=== PATIENT | female | born 1955 | race Caucasian/White ===

== ENCOUNTER → 2017-02-18 | Outpatient (CLI) | payer OTHER ==
--- NOTE | 2017-02-19 15:29 | MAM ---
EXAM DESCRIPTION: 3D Screening BILATERAL : Digital Mammography. CLINICAL HISTORY: 61 years Female SCREENING . No complaints. Mother and sister with breast cancer. Postmenopausal. No HRT. COMPARISON: 2-D digital screening bilateral study 02/14/2016. Report from prior examination also reviewed. TECHNIQUE: Bilateral CC and MLO projection full-field images, 3-D tomosynthesis digital mammographic technique. Also bilateral synthesized CC/ MLO full-field images. CAD not utilized. FINDINGS: The breast parenchymal density pattern is: Extremely dense breast tissue, which lowers the sensitivity of mammography. No skin thickening or nipple retraction . Suggestion of architectural distortion seen on the MLO view posteriorly and superiorly at the interface between the dense fibroglandular tissues and the fatty tissue layer. Not well seen on the prior study. This may be partially visualized laterally on the CC images, 1200 - 100 clock position. No focal, stellate mass or density, focal asymmetry , and no suspicious microcalcifications right breast. IMPRESSION: BI-RADS CATEGORY: 0 - INCOMPLETE- Need additional imaging evaluation. FOLLOW-UP: Recall for additional imaging: Full field left breast 3-D LM tomosynthesis images and 3-D tomosynthesis exaggerated CC images left breast. Followed by targeted left breast ultrasound. Written communication concerning the IMPRESSION and Follow-up, will be mailed to the patient and referring health care provider. Electronically signed by: Jl Mcgregor MD 02/19/2017 3:28 PM REPORT CLERK
== END | disposition home or self-care (01) ==
LOC: MAMMO 10:42
PROVIDERS: ATTEND Family Medicine
DX: Z12.31 Encounter for screening mammogram for malignant neoplasm of breast (principal)
CPT/HCPCS: 77063; G0202

== ENCOUNTER → 2017-03-05 | Outpatient (CLI) | payer OTHER ==
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
== END | disposition home or self-care (01) ==
LOC: MAMMO 09:56
PROVIDERS: ATTEND Family Medicine
DX: Z12.31 Encounter for screening mammogram for malignant neoplasm of breast (principal)
CPT/HCPCS: 76641; G0206; G0279

== ENCOUNTER → 2017-03-10 | Outpatient (CLI) | payer OTHER | END | disposition home or self-care (01) | LOC: GMAH 10:59 | PROVIDERS: ATTEND Family Medicine | DX: Z00.00 Encounter for general adult medical examination without abnormal findings (principal) ==

== ENCOUNTER → 2017-03-19 | Outpatient (CLI) | payer OTHER ==
--- NOTE | 2017-03-19 16:53 | OP ---
DATE OF PROCEDURE: 03/19/17 PREOPERATIVE DIAGNOSIS: 1. Abnormal left mammogram. POSTOPERATIVE DIAGNOSIS: 1. Abnormal left mammogram. SURGICAL PROCEDURE: 1. Sonographic guided needle core biopsy left breast lesion. SURGEON: Ky Capone M.D. WAREHOUSE REPRESENTATIVE: None. ANESTHESIA: Local infiltration of 1% Lidocaine. INDICATION FOR SURGERY: The patient is a 61 year-old female with a strong family history of breast cancer who has a left breast mass and abnormal mammogram. She was brought to the Ultrasound Department today for sonographic guided needle core biopsy under local anesthesia. FINDINGS AT TIME OF PROCEDURE: Four good cores were obtained with the needle identified by ultrasound within the mass. DESCRIPTION OF PROCEDURE: The patient was brought to the Ultrasound Suite and placed in the supine position. The left breast was examined using the ultrasound device. Then the breast lateral to the ultrasound device was prepped with Betadine and draped. Local infiltration of anesthesia was obtained with 1% Lidocaine. Then the tissue between the skin and the lesion was infiltrated with local anesthesia. A stab wound was made with a #25 blade and then multiple passes were made with the needle device into the mass and specimens were taken. This was directed by the ultrasound. Hemostasis was obtained with pressure. Then a single #4-0 nylon simple suture was placed in the wound. Sterile pressure dressing was applied. The patient tolerate the procedure well. #[id number] [facility]
--- NOTE | 2017-03-20 10:31 | US ---
EXAM DESCRIPTION: Biopsy/Needle Guidance CLINICAL HISTORY: 61 years Female LEFT BREAST MASS COMPARISON: Diagnostic ultrasound of the left breast on 03/05/2017. 3-D tomosynthesis left breast diagnostic mammogram on the same visit. TECHNIQUE: The procedure was performed by Dr. Capone. Repeat ultrasound localized the hypoechoic mass left upper breast at the 1200 clock position of the left breast, 7 cm from the nipple. Sterile preparation. Sterile ultrasound guidance. FINDINGS: Again noted is a hypoechoic mass in the breast tissue abutting the chest wall with partially indistinct and microlobulated borders. Minimally vascular and parallel orientation with predominant posterior shadowing. Dimensions are 2.5 x 2.3 x 1.6 cm. Multiple scans show the echogenic sampling needle within the lesion. IMPRESSION: Successful, ultrasound-guided, fine-needle core biopsy of left breast mass. Adequate core samples were obtained. Pathology examination at remote facility, results pending. Electronically signed by: Jl Mcgregor MD 03/20/2017 10:30 AM ARMHOLE BASTER HAND
== END | disposition home or self-care (01) ==
LOC: US 14:55
PROVIDERS: ATTEND Surgery
PROC: 0HBU3ZX Excision of Left Breast, Percutaneous Approach, Diagnostic (ICD-10-PCS; principal; 2017-03-19)
DX: R92.8 Other abnormal and inconclusive findings on diagnostic imaging of breast (principal)

== ENCOUNTER → 2017-03-26 | Outpatient (CLI) | payer OTHER | END | disposition home or self-care (01) | LOC: LAB.O 11:12 | PROVIDERS: ATTEND Surgery | DX: C50.812 Malignant neoplasm of overlapping sites of left female breast (principal) ==

== ENCOUNTER → 2017-03-27 | Outpatient (CLI) | payer OTHER ==
--- NOTE | 2017-03-27 17:05 | NM ---
EXAM DESCRIPTION: Bone Scan, Whole Body CLINICAL HISTORY: LEFT BREAST CA COMPARISON: None available TECHNIQUE: Following intravenous administration of 28 mCi technetium 99 M MDP, whole body scintigraphic imaging was performed. FINDINGS: Skull: Unremarkable. Spine: Mild levoscoliotic curvature of the lumbar spine. No osteoblastic metastatic lesions. Thorax: Symmetric physiologic radiotracer uptake in the bilateral ribs and sternum. Abdomen pelvis: Urinary activity demonstrated within the bilateral kidneys and urinary bladder. The right kidney is lower in location relative to the left kidney. Extremities: Mild asymmetric diffuse increased uptake in the left fibula, nonspecific and most likely secondary to reactive changes. Soft tissue: Normal distribution of radiopharmaceutical. IMPRESSION: No scintigraphic evidence for osteoblastic metastatic disease. Electronically signed by: Allen Kim MD 03/27/2017 5:04 PM TROLLEY CAR MECHANIC
== END | disposition home or self-care (01) ==
LOC: NM 09:05
PROVIDERS: ATTEND Surgery
DX: C50.812 Malignant neoplasm of overlapping sites of left female breast (principal)

== ENCOUNTER → 2017-04-04 | Outpatient (CLI) | payer OTHER ==
--- NOTE | 2017-04-04 18:49 | CT ---
EXAM DESCRIPTION: Chest w/Contrast CT. CLINICAL HISTORY: BREAST CANCER C50.812 COMPARISON: CT scan abdomen and pelvis without and with IV contrast on this visit. TECHNIQUE: Spiral-axial scans at 5.0 mm intervals through the lungs and thorax with IV contrast. 0.6 mm lung algorithm axial reconstructions. Coronal and sagittal 2.0 Mm reconstructions. No adverse reactions. Total Exam DLP: 370.16 mGy-cm. This exam was performed according to our departmental dose-optimization program which includes automated exposure control, adjustment of the mA and/or kV according to patient size and/or use of iterative reconstruction technique; to reduce radiation dose to as low as reasonably achievable (ALARA). FINDINGS: Minimally dilated airspaces in the central parenchyma. More prevalent in the upper lobes and the lower lobes. Minimal hyperinflation of the lungs bilaterally. No abnormal nodules masses or infiltrates bilaterally. No pleural effusion or pneumothorax. No soft tissue mass enlarged lymph nodes or abnormal enhancement in the mediastinum or hilum. Uniform enhancement of the included thyroid gland. No soft tissue masses in the base of the neck and no adenopathy in the axillary regions. Enhancing 1.5 x 1.3 cm region of the superior left breast corresponds to the mass seen on mammography ultrasound and biopsied with ultrasound guidance. Minimal narrowing of some thoracic disc spaces with narrowing of the included cervical spine disc spaces with anterior endplate ridging. No lytic lesions or sclerotic lesions in the included bony structures. Levoscoliosis upper thoracic spine and broad dextroscoliosis mid and lower spine. IMPRESSION: 1. Mild emphysematous changes in the lung parenchyma more prevalent in the upper lobes. No abnormal nodules masses or infiltrates. 2. No soft tissue masses in the mediastinum or hilum or axilla. Enhancing tumor in the superior left breast. Electronically signed by: Jl Mcgregor MD 04/04/2017 6:47 PM FACSIMILE OPERATOR Workstation: [id number]
--- NOTE | 2017-04-04 19:22 | CT ---
EXAM DESCRIPTION: Abdomen/Pelvis w/wo Contrast: CT. CLINICAL HISTORY: BREAST CANCER C50.812 COMPARISON: CT scan of the chest with IV contrast on the same visit. TECHNIQUE: Spiral-axial scans at 5.0 mm intervals through the abdomen and pelvis before and after standard dose nonionic IV contrast. No oral contrast. Coronal and sagittal 2.0 mm reconstructions. No adverse reactions. Total Exam DLP 660.7 mGy - cm. This exam was performed according to our departmental CT dose-optimization program which includes automated exposure control, adjustment of the mA and/or kV according to patient size and/or use of iterative reconstruction technique; to reduce radiation dose to as low as reasonably achievable (ALARA). FINDINGS: Liver, Stomach, Spleen, Adrenal Glands: Craniocaudal dimension of the liver 16.6 cm. Other solid organs unremarkable. Minimal fluid in the stomach. Pancreas, Gallbladder, Ducts: Gallbladder visualized. Pancreas with minimal surrounding fat. Normal caliber of the duct. Kidneys and Ureters: With minimal surrounding fat. Mesentery: Unremarkable. No free air or fluid. Aorta: Intimal wall thickening and moderate atherosclerotic calcification mostly distally extending into the common iliac arteries. Small Bowel: Diffuse gas and minimal fluid but no air-fluid levels. Terminal Ileum/Cecum: Normal caliber of the TI with gas. Minimal distention of the cecum with fecal matter. Appendix is not seen. Cecum impressing on the urinary bladder. Colon: Fecal matter from the descending colon to the sigmoid colon. Minimal redundancy of the sigmoid colon. Pelvic Organs: Urinary bladder is distended but no radiodense stones. Vaginal cuff is unremarkable. No fluid in the cul-de-sac. Ovaries are not well seen. Spine and Bony Pelvis: Minimal spondylosis of the upper lumbar spine but no bone destruction. No bone destruction in the pelvis. Minimal gas density in the left SI joint. Abdominal Wall/Back Soft Tissues: Small inguinal lymph nodes. IMPRESSION: 1. Liver minimally enlarged with normal enhancement. No focal lesions in the solid organs. No peritoneal or retroperitoneal mass. No free air or ascites. No fluid in the cul-de-sac. 2. Minimal gaseous distention of the small bowel and also the cecum. Also distention of the colon by gas and fecal material. No obstruction. Electronically signed by: Jl Mcgregor MD 04/04/2017 7:21 PM LANG INTERPRETER Workstation: [id number]
== END | disposition home or self-care (01) ==
LOC: LAB.O 08:39
PROVIDERS: ATTEND Surgery
DX: C50.812 Malignant neoplasm of overlapping sites of left female breast (principal)

== ENCOUNTER 2017-04-14 05:39 | Inpatient (IN) | payer OTHER ==
[2017-04-14] MEDS ORDERED: SODIUM CHL 0.9% 100ML MINI-BAG 100 ML IVPB ONE (06:11)
[2017-04-14] MEDS ORDERED: LACTATED RINGERS 1,000 ML ONE (06:11)
[2017-04-14] MEDS ORDERED: ceFAZolin SODIUM 1 GM VIAL ONE ×3 (06:11→19:48)
[2017-04-14] MEDS ORDERED: fentaNYL CITRATE INJ 50 MCG/ML AMP ONE (08:44)
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
[2017-04-14] MEDS ORDERED: SODIUM CHLORIDE 0.9% 50 ML VIAL INJ ONE (10:00)
[2017-04-14] MEDS ORDERED: PROPOFOL 200 MG/20 ML VIAL IV ONE (10:00)
[2017-04-14] MEDS ORDERED: ePHEDrine SULF 50 MG/ML IV ONE (10:00)
[2017-04-14] MEDS ORDERED: LACTATED RINGERS 1,000 ML IVS PRN (11:26)
[2017-04-14] MEDS ORDERED: ONDANSETRON INJ 4 MG/2 ML VIAL IV PRN (11:31)
[2017-04-14] MEDS ORDERED: ACETAMINOPHEN W/COD #3 TAB 1 EA TAB PO PRN (11:33)
--- NOTE | 2017-04-14 11:52 | OP ---
DATE OF PROCEDURE: 04/14/17 PREOPERATIVE DIAGNOSIS: 1. Biopsy-proven carcinoma of the left breast. POSTOPERATIVE DIAGNOSIS: 1. Biopsy-proven carcinoma of the left breast. PROCEDURE: 1. Left modified radical mastectomy. SURGEON: Ky Capone MD. SEWER: None. ANESTHESIA: General laryngeal mask anesthesia. INDICATION: The patient is a 62-year-old female with a strong family history of breast cancer. She developed a mass in her left breast. She underwent needle core biopsy and was found to have an invasive carcinoma. She has palpable lymphadenopathy in the left axilla. She was brought to the Surgical Suite today for mastectomy with axillary node dissection after the risks, benefits and alternatives to the procedure were discussed and accepted. FINDINGS: The mass was not stuck to the muscle or to the skin and clinically, margins were clear. The adenopathy was identified in the axilla and removed with the specimen. No other pathology was identified. PROCEDURE: After adequate general laryngeal mask anesthesia was obtained, the patient was prepped and draped in the usual sterile manner. Surgical time-out was taken. An elliptical incision was fashioned in an oblique direction including the biopsy site, the mass and the nipple-areola complex within the specimen. At this point, the superior flap was then taken, first with a sharp knife, then dissection was carried down through the skin with electrocautery. The Edith thyroid grasping forceps were then placed on the skin edges and the superior flap was taken the sternum medially, the clavipectoral fascia superiorly and into the axilla. When this was done, a moist sponge was placed under the flap and the inferior flap was taken in the same manner down to the rectus fascia inferiorly. When this was done, the breast was taken down from superiorly and medially using a sharp knife. When this was done, dissection was carried into the axilla and in the usual manner, the axillary dissection was performed. The specimen was sent for pathological evaluation. The wound was then irrigated copiously with saline. Two drains were placed through the inferior flap. They were 15 mm round SANCHEZ drains. One was placed in the axilla, one to the chest wall. They were sutured in place with 3-0 Nylon ligatures. At this point, the subcutaneous tissues were approximated with running 3-0 Vicryl suture, one tied from each end. The wound was then irrigated through the incision and aspirated out through the drains. The skin edges were approximated with a skin stapler. A sterile pressure dressing was applied. The patient was awakened and taken to the Recovery Room in good and stable condition. Estimated blood loss was 75 to 100 mL. All sponge, needle and instrument counts were correct. #[id number] [facility]
[2017-04-14] MEDS ORDERED: LEVALBUTEROL NEBS 1.25 MG/3 ML VIAL NEB ONE (12:02)
[2017-04-14] MEDS: LEVALBUTEROL NEBS 0.63 MG/3 ML VIAL NEB SCH ×3 (12:06→23:32)
[2017-04-14] MEDS: MORPHINE SULFATE INJ 10 MG/ML VIAL IV PRN ×2 (13:00→22:06)
[2017-04-14] MEDS ORDERED: ceFAZolin SODIUM 2 GRAMS PREMI 50 ML IVPB ONE (13:41)
[2017-04-14] MEDS ORDERED: SODIUM CHL 0.9% 50ML MIN-BAG+ 50 ML IVPB ONE ×2 (13:45→19:47)
[2017-04-14] MEDS: ceFAZolin SODIUM 1 GM in SODIUM CHL 0.9% 50ML MIN-BAG+ 50 ML IVPB SCH ×2 (13:47→21:34)
[2017-04-14] MEDS ORDERED: SODIUM CHLORIDE 0.9% (FLUSH) 10 ML SYG IV PRN (14:35)
[2017-04-14] MEDS: ENOXAPARIN SODIUM 40 MG/0.4 ML SYG SUBCU SCH (21:34)
[2017-04-15] MEDS ORDERED: SODIUM CHL 0.9% 50ML MIN-BAG+ 50 ML IVPB ONE (05:17)
[2017-04-15] MEDS ORDERED: ceFAZolin SODIUM 1 GM VIAL ONE (05:17)
[2017-04-15] MEDS: ceFAZolin SODIUM 1 GM in SODIUM CHL 0.9% 50ML MIN-BAG+ 50 ML IVPB SCH (05:23)
[2017-04-15] MEDS: LEVALBUTEROL NEBS 0.63 MG/3 ML VIAL NEB SCH ×3 (08:45→23:41)
[2017-04-15] MEDS: SODIUM CHLORIDE 0.9% (FLUSH) 10 ML SYG IV SCH (20:35)
[2017-04-15] MEDS: ENOXAPARIN SODIUM 40 MG/0.4 ML SYG SUBCU SCH (20:35)
[2017-04-16] MEDS: LEVALBUTEROL NEBS 0.63 MG/3 ML VIAL NEB SCH (08:23)
[2017-04-16] MEDS: SODIUM CHLORIDE 0.9% (FLUSH) 10 ML SYG IV SCH (08:39)
[2017-04-16] MEDS ORDERED: IV SET AND CAP CHANGE INJ INJ SCH (09:00)
[2017-04-16 10:39] VITALS: BP 131/76; TEMP 98.1; O2SAT 96
--- NOTE | 2017-04-16 13:42 | DS ---
FINAL DIAGNOSIS: 1. Carcinoma of the left breast. SURGICAL PROCEDURE: Left modified radical mastectomy on 04/14/17. HISTORY OF PRESENT ILLNESS: The patient is a 62-year-old female who presented with an abnormal mammogram. She was found to have a mass in the left breast. Sonographically guided needle core biopsy revealed an invasive ductal carcinoma. She has had a negative metastatic workup and was admitted this morning for a left modified radical mastectomy after the risks, benefits and alternatives to the different procedures were discussed and accepted. LABORATORY: On the day prior to admission, the patient had a hemoglobin of 11.2 with a white count of 7.2, platelet count 214,000, neutrophils 65%. Pathology is pending at time of discharge. HOSPITAL COURSE: The patient was admitted on 04/14/17 and taken to the Surgical Suite where she underwent left modified radical mastectomy. She tolerated it well. By the next morning, she had a stable hemoglobin and her IV was saline locked. She was advanced from a clear liquid diet to a regular diet. She took essentially no pain medication postoperatively. On the second postoperative morning, her SANCHEZ drainage was still greater than 50 mL per drain. A dressing change was performed which revealed the flaps to be viable, the staple line intact with no fluid collections or drainage. She was re-wrapped, the drains were milked and at that time, she was discharged home. CONDITION ON DISCHARGE: Excellent. PROGNOSIS: Pending the path report. DISPOSITION: The patient is to followup in my office in 5 days. She is discharged with a home health consultation to [facility]. She was discharged on a regular diet, on her regular medications and she has not smoked in 4 days and has been instructed to try to continue that. She seems willing to discharge also with instructions to call me if she has questions, problems, drain problems, fever, chills, shortness of breath or chest pain. #[id number] [facility]
== END 2017-04-16 11:57 | disposition home health service (06) | DRG 581 ==
LOC: AMB 05:39 → MS 12:30
PROVIDERS: ADMIT Surgery; ATTEND Surgery
PROC: 07B60ZX Excision of Left Axillary Lymphatic, Open Approach, Diagnostic (ICD-10-PCS; 2017-04-14)
PROC: 0HTU0ZZ Resection of Left Breast, Open Approach (ICD-10-PCS; principal; 2017-04-14 08:00)
DX: C50.912 Malignant neoplasm of unspecified site of left female breast (principal); J44.9 Chronic obstructive pulmonary disease, unspecified; G89.29 Other chronic pain; M54.2 Cervicalgia; M19.90 Unspecified osteoarthritis, unspecified site; F17.210 Nicotine dependence, cigarettes, uncomplicated; Z85.42 Personal history of malignant neoplasm of other parts of uterus; Z85.41 Personal history of malignant neoplasm of cervix uteri; Z90.710 Acquired absence of both cervix and uterus; Z88.1 Allergy status to other antibiotic agents; Z79.899 Other long term (current) drug therapy; Z80.3 Family history of malignant neoplasm of breast; Z79.1 Long term (current) use of non-steroidal anti-inflammatories (NSAID); Z98.1 Arthrodesis status

== ENCOUNTER → 2017-05-09 | Outpatient (CLI) | payer OTHER | LOC: GMAH 11:15 | PROVIDERS: ATTEND Family Medicine | DX: E03.9 Hypothyroidism, unspecified (principal) ==

== ENCOUNTER → 2018-05-26 | Outpatient (CLI) | payer BC, OTHER ==
--- NOTE | 2018-05-27 13:13 | MAM ---
EXAM DESCRIPTION: 3D Screening BILATERAL : Digital Mammography. CLINICAL HISTORY: 63 years Female ANNUAL SCREENING . Left breast cancer discovered in February 2017. Followed by left mastectomy. Mother and sister with breast cancer. Lifetime risk of developing breast cancer (Tyrer-Cuzick model)(%): Not calculated due to personal history of breast cancer. COMPARISON: Bilateral screening 2-D mammography 02/18/2017.. TECHNIQUE: Bilateral CC and MLO projection full-field images, digital tomosynthesis mammographic technique. Bilateral digital 2-D full-field MLO images. CAD not available for tomosynthesis or 2-D images. FINDINGS: Right breast parenchymal density pattern is: Extremely dense breast tissue, which lowers the sensitivity of mammography. No skin thickening or nipple retraction. No new focal, stellate mass or density, focal asymmetry , and no suspicious microcalcifications right breast. Stable mammograms compared to prior study. Taking into account, differences in mammographic technique. IMPRESSION: BI-RADS CATEGORY: 1 - NEGATIVE FOLLOW UP: Routine digital bilateral screening, right breast, one year interval from May 2018. Written communication explaining the findings and follow-up, will be mailed to the patient and referring health care provider. According to the [employer], yearly mammograms are recommended starting at age 40 and continuing as long as a woman is in good health. Any breast change noted on a breast self-exam should be reported promptly to the patient's healthcare provider. Breast MRI is recommended for women with an approximately 20-25% or greater lifetime risk of breast cancer, including women with a strong family history of breast or ovarian cancer and women who have been treated for Hodgkin's disease. A negative mammographic report should not delay tissue diagnosis in patients with significant clinical history or physical findings. Extremely dense breast tissue limits the sensitivity of digital mammography. Electronically signed by: Jl Mcgregor MD 05/27/2018 1:09 PM QUALITY ASSURANCE/R&D LAB TECHNICIAN
== END ==
LOC: MAMMO 10:00
PROVIDERS: ATTEND Family Medicine
DX: Z12.31 Encounter for screening mammogram for malignant neoplasm of breast (principal); Z90.12 Acquired absence of left breast and nipple; Z85.3 Personal history of malignant neoplasm of breast

== ENCOUNTER → 2019-05-18 | Outpatient (CLI) | payer SELFPAY | LOC: GMA MATASK 10:27 | PROVIDERS: ATTEND Family Medicine | DX: E03.8 Other specified hypothyroidism (principal); E78.2 Mixed hyperlipidemia ==

== ENCOUNTER → 2019-08-17 | Outpatient (CLI) | payer MEDICARE, OTHER | LOC: GMA MATASK 11:58 | PROVIDERS: ATTEND Family Medicine | DX: E03.9 Hypothyroidism, unspecified (principal) ==

== ENCOUNTER → 2019-08-18 | Outpatient (CLI) | payer MEDICARE, OTHER ==
--- NOTE | 2019-08-18 20:13 | MAM ---
EXAM DESCRIPTION: 3D Screening BILATERAL : Digital Mammography. CLINICAL HISTORY: 64 years Female ANNUAL SCREENING . Personal history of breast cancer on the left February 2017. No complaints. Mother and female sibling with breast cancer. Remote family history of breast cancer. Menarche age 14. No childbirth. Menopause age 24. No HRT. Lifetime risk of developing breast cancer (Tyrer-Cuzick model)(%): Not calculated due to personal history of breast cancer. COMPARISON: Right breast screening digital tomosynthesis May 2018. TECHNIQUE: Right CC and MLO projection full-field images, digital tomosynthesis mammographic technique. Right digital 2-D full-field MLO and CC images. CAD available for 2-D images. FINDINGS: Right breast parenchymal density pattern is: Extremely dense breast tissue, which lowers the sensitivity of mammography.. Solitary microcalcifications. No new focal, stellate mass or density, focal asymmetry , and no suspicious microcalcifications right breast. Stable mammograms compared to prior study. IMPRESSION: Benign exam. BIRAD CATEGORY: 2 BENIGN FINDINGS. RECOMMENDATIONS: FOLLOW UP: Routine digital right mammographic screening, one year interval from July 2019. Written communication explaining the IMPRESSION and follow-up, will be mailed to the patient and referring health care provider. According to the [employer], yearly mammograms are recommended starting at age 40 and continuing as long as a woman is in good health. Any breast change noted on a breast self-exam should be reported promptly to the patient's healthcare provider. Breast MRI is recommended for women with an approximately 20-25% or greater lifetime risk of breast cancer, including women with a strong family history of breast or ovarian cancer and women who have been treated for Hodgkin's disease. A negative mammographic report should not delay tissue diagnosis in patients with significant clinical history or physical findings. Extremely dense breast tissue limits the sensitivity of digital mammography. Electronically signed by: Jl Mcgregor MD 08/18/2019 8:11 PM CDT
== END ==
LOC: MAMMO 10:35
PROVIDERS: ATTEND Family Medicine
DX: Z12.31 Encounter for screening mammogram for malignant neoplasm of breast (principal)

== ENCOUNTER → 2019-12-20 | Outpatient (CLI) | payer MEDICARE, OTHER | LOC: GMA MATASK 16:43 | PROVIDERS: ATTEND Family Medicine | DX: E03.9 Hypothyroidism, unspecified (principal); E78.2 Mixed hyperlipidemia ==